=== PATIENT | female | born 1995 | race Caucasian/White ===

== ENCOUNTER 2020-01-16 18:51 | Inpatient (IN) ==
[~2020-01-16 18:51] MED LIST: Famotidine 20 MG/2 ML VIAL IVP PRN; Metoclopramide 10 MG/2 ML VIAL IVP PRN; Naloxone 0.4 MG/ML INJ IVP PRN; Ondansetron 4 MG/2 ML VIAL IVP PRN
[2020-01-16] MEDS ORDERED: Oxytocin 20 units/ LR 1000 mL 20 UNIT/1,000 ML BAG IVC SCH (19:30)
[2020-01-16 19:33] LABS: Basophils % 0.2 %; Eosinophils % 0.1 %; Hematocrit 34.7 % (35.3-44.9); Hemoglobin 11.5 g/dL (11.5-15.4); Immature Granulocytes % 0.5 % (0-4); Lymphocytes # 1.9 K/mcL (0.6-4.6); Mean Corpuscular HGB Conc 33.1 g/dL (31.6-35.5); Mean Corpuscular Hemoglobin 29.9 pg (28.0-33.3); Mean Corpuscular Volume 90.4 fL (83.0-100.0); Mean Platelet Volume 11.2 fL (9.4-12.4); Monocytes # 1.2 K/mcL (0.0-1.3); Monocytes % 7.4 %; Neutrophils # 12.4 K/mcL (1.6-8.9); Platelet Count 240 K/mcL (140-400); Red Blood Count 3.84 M/mcL (3.82-4.97); Segmented Neutrophils % 79.8 %; White Blood Count 15.5 K/mcL (4.3-11.1)
[2020-01-16 21:10] LABS: Amphetamine Screen,Urine Negative ng/mL (Cutoff=1000); Barbiturate Screen,Urine Negative ng/mL (Cutoff=200); Benzodiazepines Screen,Urine Negative ng/mL (Cutoff=200); Cannabinoid Screen,Urine Negative ng/mL (Cutoff = 50); Cocaine Screen,Urine Negative ng/mL (Cutoff= 300); Opiate Screen,Urine Negative ng/mL (Cutoff=300); Phencyclidine Screen,Urine Negative ng/mL (Cutoff=25)
[2020-01-16] MEDS ORDERED: *HR* FentaNYL (PF) 100 MCG/2 ML VIAL ONE ×2 (21:10→21:51)
[2020-01-16] MEDS ORDERED: *HR* FentaNYL (PF) 100 MCG/2 ML VIAL IVP PRN (21:15)
[2020-01-16] MEDS ORDERED: EPHEDrine 50 MG/ML VIAL IVP PRN (21:49)
[2020-01-16] MEDS ORDERED: Bupivacaine-MPF 0.25% 10 ML VIAL EP ONE (21:49)
[2020-01-16] MEDS ORDERED: *HR* FentaNYL (PF) 100 MCG/2 ML VIAL EP ONE (21:49)
[2020-01-16] MEDS ORDERED: Bupivacaine-MPF 0.25% 10 ML VIAL ONE (21:51)
[2020-01-16] MEDS: Ringers Solution, Lactated 1,000 ML IVC SCH (22:45)
[2020-01-16] MEDS: Epidural Premix (fent/bupiv) 110 ML EP SCH (22:46)
[2020-01-17] MEDS ORDERED: *HR* FentaNYL (PF) 100 MCG/2 ML VIAL ONE (07:17)
[2020-01-17] MEDS ORDERED: Ropivacaine/PF 0.2% 20 ML VIAL ONE (07:17)
[2020-01-17] MEDS: Epidural Premix (fent/bupiv) 110 ML EP SCH ×2 (07:25→11:47)
[2020-01-17] MEDS ORDERED: Ringers Solution, Lactated 500 ML ONE (14:38)
[2020-01-17] MEDS ORDERED: Lidocaine 1% 20 ML MDV ONE (16:07)
[2020-01-17] MEDS ORDERED: Ibuprofen 600 MG TABLET PO STA (16:46)
[2020-01-17] MEDS: Ringers Solution, Lactated 1,000 ML IVC SCH ×2 (16:54→16:55)
[2020-01-17] MEDS ORDERED: Ibuprofen 600 MG TABLET PO PRN (18:10)
[2020-01-17] MEDS ORDERED: Benzocaine/Menthol 56 GM AEROSOL SPRAY TP PRN (18:10)
[2020-01-17] MEDS ORDERED: Lanolin 7 G OINT...G. TP PRN (18:10)
[2020-01-17] MEDS ORDERED: Oxytocin 20 units/ LR 1000 mL 20 UNIT/1,000 ML BAG IVC SCH (18:10)
[2020-01-18 06:28] LABS: Basophils % 0.2 %; Eosinophils % 0.1 %; Hematocrit 30.2 % (35.3-44.9); Immature Granulocytes % 0.7 % (0-4); Lymphocytes % 11.2 %; Mean Corpuscular HGB Conc 31.1 g/dL (31.6-35.5); Mean Platelet Volume 11.2 fL (9.4-12.4); Monocytes # 1.2 K/mcL (0.0-1.3); Monocytes % 6.6 %; Neutrophils # 14.8 K/mcL (1.6-8.9); Platelet Count 168 K/mcL (140-400); Red Blood Count 3.03 M/mcL (3.82-4.97); Red Cell Distribution Width 13.4 % (11.5-14.5); Segmented Neutrophils % 81.2 %; White Blood Count 18.2 K/mcL (4.3-11.1)
[2020-01-18 06:31] LABS: Hemoglobin 9.4 g/dL (11.5-15.4)
[2020-01-18 06:32] LABS: Mean Corpuscular Volume 99.7 fL (83.0-100.0)
[2020-01-18 07:41] VITALS: BP 100/68
[2020-01-18] MEDS ORDERED: Prenatal Vit/FA 1 EACH TABLET PO SCH (09:00)
== END 2020-01-18 16:58 | disposition home or self-care (01) | DRG 768 ==
LOC: 1NENULAB → 1NENUOBS 01-17 18:45
PROVIDERS: ADMIT Obstetrics & Gynecology; ATTEND Obstetrics & Gynecology